=== PATIENT | male | born 1985 | race Caucasian/White ===

== ENCOUNTER 2019-09-08 12:14 | Emergency (ER) | payer MEDICAID ==
[~2019-09-08] VITALS: Ht 167.6 cm; Wt 72.8 kg
--- NOTE | 2019-09-08 12:49 | PHYS DOC ---
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 He states that they have to wear jeans and longsleeve clothing and mass. States that he began having some dizziness and vomited once and some nausea. He states he went home drink a lot of water and was has been fine all weekend long. He states he still feels fine. He states his work states that he has to have a work note to return back to work. Patient denies pain, abdominal pain, nausea, vomiting, diarrhea, fever, cough, dizziness, headache, vision changes, numbness or tingling, chest pain, shortness of breath. (ADRIAN MILLARD APRN) Review of Systems: Review of Systems: Constitutional: Denies fever or chills. [] Eyes: Denies change in visual acuity. [] HENT: Denies nasal congestion or sore throat. [] Respiratory: Denies cough or shortness of breath. [] Cardiovascular: Denies chest pain or edema. [] GI: Denies abdominal pain. On sunday nausea and vomiting x1, bloody stools or diarrhea. [] : Denies dysuria. [] Musculoskeletal: Denies back pain or joint pain. [] Integument: Denies rash. [] Neurologic: Dizziness on sunday. Denies headache, focal weakness or sensory changes. [] Endocrine: Denies polyuria or polydipsia. [] Lymphatic: Denies swollen glands. [] Psychiatric: Denies depression or anxiety. [] (ADRIAN MILLARD APRN) Heart Score: Risk Factors: Risk Factors: DM, Current or recent (<one month) smoker, HTN, HLP, family history of CAD, obesity. Risk Scores: Score 0 - 3: 2.5% MACE over next 6 weeks - Discharge Home Score 4 - 6: 20.3% MACE over next 6 weeks - Admit for Clinical Observation Score 7 - 10: 72.7% MACE over next 6 weeks - Early Invasive Strategies (ADRIAN MILLARD APRN) Allergies: Allergies: Allergies Coded Allergies Type Severity Reaction Last Updated Verified No Known Drug Allergies 09/08/19 No (ADRIAN MILLARD APRN) Physical Exam: PE: Constitutional: Well developed, well nourished, no acute distress, non-toxic appearance. [] HENT: Normocephalic, atraumatic, bilateral external ears normal, oropharynx moist, no oral exudates, nose normal. [] Eyes: PERRLA, EOMI, conjunctiva normal, no discharge. [] Neck: Normal range of motion, no tenderness, supple, no stridor. [] Cardiovascular:Heart rate regular rhythm, no murmur [] Lungs & Thorax: Bilateral breath sounds clear to auscultation [] Abdomen: Bowel sounds normal, soft, no tenderness, no masses, no pulsatile masses. [] Skin: Warm, dry, no erythema, no rash. [] Back: No tenderness, no CVA tenderness. [] Extremities: No tenderness, no cyanosis, no clubbing, ROM intact, no edema. [] Neurologic: Alert and oriented X 3, normal motor function, normal sensory function, no focal deficits noted. [] Psychologic: Affect normal, judgement normal, mood normal. [] (ADRIAN MILLARD APRN) EKG: EKG: [] (ADRIAN MILLARD APRN) Radiology/Procedures: Radiology/Procedures: [] (ADRIAN MILLARD APRN) Course & Med Decision Making: Course & Med Decision Making Pertinent Labs and Imaging studies reviewed. (See chart for details) Vital signs within normal limits. Ambulatory with steady gait. Alert and oriented. Skin pink warm and dry. Patient is agreed to give a urine to check for dehydration. Patient states he is eating and drinking appropriately. He states he is urinating appropriately. Patients urine shows dehydration. He will Receive 2 Liter of NS in the ED. [] (ADRIAN MILLARD APRN) Dragon Disclaimer: Dragon Disclaimer: This electronic medical record was generated, in whole or in part, using a voice recognition dictation system. (ADRIAN MILLARD APRN) Departure Departure Impression: Primary Impression: Encounter for medical screening examination Disposition: HOME, SELF-CARE Condition: STABLE Referrals: NO PCP (PCP) Patient Instructions: Medical Screening Exam Additional Instructions: Drink plenty of water or gatorade while you are at work. Justicifation of Admission Dx: Justifications for Admission: Justification of Admission Dx: N/A (ADRIAN MILLARD APRN) Attending Signature Attending Signature I have reviewed the PA/MASTER CARPENTER's note and plan of care. I was available for consultation as needed during the patient's visit in the emergency department. I agree with the clinical impression, plan, and disposition. (BERTIN STUART DO) ADRIAN MILLARD APRN Sep 08, 2019 12:49 BERTIN STUART DO Sep 11, 2019 01:07
[2019-09-08 13:17] LABS: BILIRUBIN,URINE SMALL (NEG); CLARITY,URINE CLEAR; COLOR,URINE AMBER; NITRITE,URINE NEGATIVE (NEG); PROTEIN,URINE NEGATIVE (NEG-TRACE)
[2019-09-08 13:26] LABS: SQUAMOUS EPITHELIAL CELL,UR OCC /LPF
[2019-09-08 13:27] LABS: BACTERIA,URINE FEW /HPF (0-FEW); RBC,URINE 0 /HPF (0-2)
[2019-09-08 13:56] LABS: BASO # 0.1 x10^3/uL (0.0-0.2); BASO % 0 % (0-3); EOS # 0.1 x10^3/uL (0.0-0.7); EOS % 1 % (0-3); HEMATOCRIT 49.3 % (39.0-53.0); HEMOGLOBIN 17.3 g/dL (13.0-17.5); LYMPH % 30 % (24-48); MEAN CORPUSCULAR HEMOGLOBIN 32 pg (25-35); MEAN CORPUSCULAR HGB CONC 35 g/dL (31-37); MEAN CORPUSCULAR VOLUME 92 fL (79-100); MONO # 0.9 x10^3/uL (0.0-1.1); MONO % 6 % (0-9); NEUT # 8.4 x10^3/uL (1.8-7.7); NEUT % 63 % (31-73); PLATELET COUNT 268 x10^3/uL (140-400); RED BLOOD COUNT 5.36 x10^6/uL (4.30-5.70); RED CELL DISTRIBUTION WIDTH 13.4 % (11.5-14.5); WHITE BLOOD COUNT 13.4 x10^3/uL (4.0-11.0)
[2019-09-08] MEDS ORDERED: IV NORMAL SALINE 1000ML BAG 1,000 ML IV ONE ×2 (14:00)
[2019-09-08 14:05] LABS: CALCIUM 9.2 mg/dL (8.5-10.1); CREATININE 1.3 mg/dL (0.7-1.3); GFR 63.2
[2019-09-08 14:11] LABS: ALBUMIN 4.1 g/dL (3.4-5.0); TOTAL BILIRUBIN 0.6 mg/dL (0.2-1.0); TOTAL PROTEIN 8.1 g/dL (6.4-8.2)
[2019-09-08 15:00] VITALS: BP 124/76
== END 2019-09-08 15:20 | disposition home or self-care (01) ==
LOC: ER 12:14
DX: R42 Dizziness and giddiness (principal); R11.2 Nausea with vomiting, unspecified
CPT/HCPCS: 36415; 80053; 81001; 82550; 84484; 85025; 96360; 99283; J7030